=== PATIENT | female | born 1975 | race Caucasian/White ===

== ENCOUNTER 2020-01-03 23:58 | Observation (INO) ==
[2020-01-04] MEDS ORDERED: 0.9 % Sodium Chloride 1,000 ML IVC ONE (00:38)
[2020-01-04 01:12] LABS: Basophils % 0.5 %; Eosinophils # 0.1 K/mcL (0.0-0.6); Eosinophils % 1.4 %; Hematocrit 48.1 % (35.3-44.9); Immature Granulocytes % 0.7 % (0-4); Lymphocytes # 0.9 K/mcL (0.6-4.6); Lymphocytes % 19.6 %; Mean Corpuscular HGB Conc 31.2 g/dL (31.6-35.5); Mean Corpuscular Hemoglobin 27.1 pg (28.0-33.3); Mean Corpuscular Volume 86.8 fL (83.0-100.0); Mean Platelet Volume 10.3 fL (9.4-12.4); Monocytes # 0.4 K/mcL (0.0-1.3); Monocytes % 9.5 %; Platelet Count 149 K/mcL (140-400); Red Blood Count 5.54 M/mcL (3.82-4.97); Red Cell Distribution Width 13.9 % (11.5-14.5); Segmented Neutrophils % 68.3 %; White Blood Count 4.3 K/mcL (4.3-11.1)
[2020-01-04 01:13] LABS: INR 1.2; Prothrombin Time 13.1 Seconds (9.4-12.1)
[2020-01-04 01:20] LABS: Alanine Aminotransferase 91 Units/L (7-52); Albumin/Globulin Ratio 1.3 (1.1-2.2); Alkaline Phosphatase 136 Units/L (34-104); Aspartate Amino Transferase 84 Units/L (13-39); BUN/Creatinine Ratio 19 (6-26); Bilirubin,Direct 0.1 mg/dL (0.0-0.2); Bilirubin,Indirect 0.2 mg/dL (0.0-1.0); Bilirubin,Total 0.3 mg/dL (0.3-1.0); Blood Urea Nitrogen 13 mg/dL (6-20); Calcium 9.2 mg/dL (8.6-10.3); Carbon Dioxide 27 mEq/L (23-29); Chloride 102 mEq/L (98-107); Globulin 3.2 g/dL (2.4-3.5); Glucose 136 mg/dL (70-105); Osmolality,Calculated 284 (280-300); Phosphorous 3.2 mg/dL (2.7-4.5); Potassium 4.4 mEq/L (3.5-5.1); Sodium 136 mEq/L (136-145); Total Protein 7.2 g/dL (6.4-8.9); Troponin I < 0.03 ng/mL (< 0.04); eGFR For African Americans > 60 (> 60); eGFR For Non-African Americans > 60 (> 60)
[2020-01-04] MEDS ORDERED: Ketorolac 15 MG/ML VIAL IVP ONE (01:41)
[2020-01-04 01:52] LABS: Bilirubin,Urine Negative (Negative); Blood,Urine Negative (Negative); Clarity,Urine Clear (Clear); Color,Urine Light-Yellow (Yellow); Glucose,Urine (UA) Normal (Normal); Ketones,Urine Negative (Negative); Leukocyte Esterase,Urine Small (Negative); Mucus,Urine Few per lpf (None-Few); Nitrite,Urine Negative (Negative); PH,Urine 6.5 pH Units (5.0-8.0); Protein,Urine Negative (Neg-Trace); Specific Gravity,Urine 1.022 (1.010-1.025); Squamous Epithelial Cell,Urine Few per hpf (None-Few); Urobilinogen,Urine Normal (Normal)
[2020-01-04] MEDS ORDERED: *HR* FentaNYL (PF) 100 MCG/2 ML VIAL IVP ONE (03:21)
[2020-01-04] MEDS ORDERED: *HR* Promethazine 25 MG/ML VIAL IVP PRN (03:51)
[2020-01-04] MEDS ORDERED: Ondansetron 4 MG/2 ML VIAL IVP PRN (03:51)
[2020-01-04] MEDS ORDERED: Ketorolac 15 MG/ML VIAL IVP PRN ×2 (03:51→15:09)
[2020-01-04] MEDS ORDERED: Naloxone 0.4 MG/ML INJ IVP PRN (03:51)
[2020-01-04] MEDS ORDERED: Acetaminophen 325 MG TABLET PO PRN (03:51)
[2020-01-04] MEDS ORDERED: *HR* OxyCODONE/APAP 5/325 TABLET PO PRN (03:54)
[2020-01-04] MEDS ORDERED: ALPRAZolam 0.25 MG TABLET PO PRN (03:54)
[2020-01-04] MEDS ORDERED: Levothyroxine 25 MCG TABLET PO SCH (06:30)
[2020-01-04] MEDS: calcium polycarbophiL 625 MG TABLET PO SCH ×3 (08:36→21:05)
[2020-01-04] MEDS: Ringers Solution, Lactated 1,000 ML IVC SCH ×2 (08:36→20:25)
[2020-01-04] MEDS: *HR* Enoxaparin 40 MG/0.4 ML SYRINGE SQ SCH (08:36)
[2020-01-04] MEDS ORDERED: estradioL 1 MG TABLET PO SCH (09:00)
[2020-01-04] MEDS: Insulin LISPRO 300 UNITS/3 ML VIAL SQ SCH (16:45)
[2020-01-04] MEDS: Magic Mouthwash 10 ML UD Cup PO PRN (17:28)
[2020-01-05] MEDS: Loratadine 10 MG TABLET PO SCH ×2 (00:42→20:54)
[2020-01-05] MEDS: *HR* Enoxaparin 40 MG/0.4 ML SYRINGE SQ SCH (06:28)
[2020-01-05 08:07] LABS: Hematocrit 44.1 % (35.3-44.9); Hemoglobin 14.4 g/dL (11.5-15.4); Mean Corpuscular HGB Conc 32.7 g/dL (31.6-35.5); Mean Corpuscular Hemoglobin 28.5 pg (28.0-33.3); Mean Corpuscular Volume 87.2 fL (83.0-100.0); Mean Platelet Volume 9.9 fL (9.4-12.4); Platelet Count 119 K/mcL (140-400); Red Blood Count 5.06 M/mcL (3.82-4.97); Red Cell Distribution Width 13.7 % (11.5-14.5)
[2020-01-05 08:27] LABS: BUN/Creatinine Ratio 22 (6-26); Blood Urea Nitrogen 13 mg/dL (6-20); C-Reactive Protein 31 mg/L (Less than 10); Calcium 8.6 mg/dL (8.6-10.3); Carbon Dioxide 28 mEq/L (23-29); Chloride 100 mEq/L (98-107); Glucose 123 mg/dL (70-105); Lactate Dehydrogenase 129 Units/L (140-271); Osmolality,Calculated 285 (280-300); Phosphorous 3.9 mg/dL (2.7-4.5); Sodium 137 mEq/L (136-145); eGFR For African Americans > 60 (> 60); eGFR For Non-African Americans > 60 (> 60)
[2020-01-05] MEDS: Insulin LISPRO 300 UNITS/3 ML VIAL SQ SCH ×3 (08:35→17:22)
[2020-01-05] MEDS: calcium polycarbophiL 625 MG TABLET PO SCH ×3 (08:37→21:34)
[2020-01-05] MEDS: Magic Mouthwash 10 ML UD Cup PO PRN ×4 (08:39→20:54)
[2020-01-05 08:45] LABS: Ferritin 650 ng/mL (10-120)
[2020-01-05] MEDS ORDERED: Loratadine 10 MG TABLET PO SCH (09:00)
[2020-01-05] MEDS ORDERED: LEVOTHYROXINE SODIUM 200 MCG PO SCH (09:00)
[2020-01-05] MEDS: Dexamethasone 4 MG/ML VIAL IVP SCH (17:38)
[2020-01-05] MEDS ORDERED: Docusate Oral Soln 100 MG/10 ML UDC PO PRN (23:11)
[2020-01-06] MEDS: *HR* Enoxaparin 40 MG/0.4 ML SYRINGE SQ SCH (05:10)
[2020-01-06 05:18] LABS: Hematocrit 46.6 % (35.3-44.9); Lymphocytes # 0.5 K/mcL (0.6-4.6); Lymphocytes % 16.2 %; Mean Corpuscular HGB Conc 32.2 g/dL (31.6-35.5); Mean Corpuscular Hemoglobin 27.2 pg (28.0-33.3); Mean Corpuscular Volume 84.6 fL (83.0-100.0); Mean Platelet Volume 10.2 fL (9.4-12.4); Monocytes # 0.1 K/mcL (0.0-1.3); Monocytes % 4.8 %; Neutrophils # 2.3 K/mcL (1.6-8.9); Platelet Count 147 K/mcL (140-400); Red Blood Count 5.51 M/mcL (3.82-4.97); Red Cell Distribution Width 13.3 % (11.5-14.5); White Blood Count 2.9 K/mcL (4.3-11.1)
[2020-01-06 05:37] LABS: BUN/Creatinine Ratio 21 (6-26); Blood Urea Nitrogen 11 mg/dL (6-20); Calcium 9.5 mg/dL (8.6-10.3); Carbon Dioxide 27 mEq/L (23-29); Chloride 100 mEq/L (98-107); Glucose 190 mg/dL (70-105); Osmolality,Calculated 284 (280-300); Potassium 4.1 mEq/L (3.5-5.1); Sodium 135 mEq/L (136-145); eGFR For African Americans > 60 (> 60); eGFR For Non-African Americans > 60 (> 60)
[2020-01-06] MEDS: Insulin LISPRO 300 UNITS/3 ML VIAL SQ SCH ×2 (08:13→11:59)
[2020-01-06] MEDS: calcium polycarbophiL 625 MG TABLET PO SCH (08:15)
[2020-01-06] MEDS: Magic Mouthwash 10 ML UD Cup PO PRN ×2 (08:17→12:01)
[2020-01-06] MEDS: Dexamethasone 4 MG/ML VIAL IVP SCH (08:19)
[2020-01-06 08:23] VITALS: BP 155/62
== END 2020-01-06 13:41 | disposition home or self-care (01) ==
LOC: EMEROOARM 23:58 → 2NENU 23:58 → SUATTDRO 01-04 03:43 → 2NENU 01-04 04:42
PROVIDERS: ADMIT Internal Medicine; ATTEND Family Medicine

== ENCOUNTER 2020-01-09 16:58 | Observation (INO) ==
[2020-01-09] MEDS ORDERED: 0.9 % Sodium Chloride 1,000 ML IVC ONE (17:30)
[2020-01-09] MEDS ORDERED: Ipratropium/Albuterol Neb 3 ML IH ONE (17:30)
[2020-01-09] MEDS ORDERED: Ketorolac 30 MG/ML VIAL IVP ONE (17:31)
[2020-01-09 18:18] LABS: Basophils % 0.3 %; Hematocrit 47.7 % (35.3-44.9); Hemoglobin 15.2 g/dL (11.5-15.4); Immature Granulocytes % 0.7 % (0-4); Lymphocytes # 0.7 K/mcL (0.6-4.6); Lymphocytes % 23.7 %; Mean Corpuscular HGB Conc 31.9 g/dL (31.6-35.5); Mean Corpuscular Volume 84.9 fL (83.0-100.0); Monocytes # 0.2 K/mcL (0.0-1.3); Monocytes % 7.9 %; Platelet Count 108 K/mcL (140-400); Red Blood Count 5.62 M/mcL (3.82-4.97); Red Cell Distribution Width 13.7 % (11.5-14.5); Segmented Neutrophils % 67.4 %; White Blood Count 2.9 K/mcL (4.3-11.1)
[2020-01-09] MEDS ORDERED: Vancomycin 1,750 MG/517.5 ML IV.SOLN IVPB ONE (18:30)
[2020-01-09] MEDS ORDERED: Cefepime HCl 2,000 MG in Water for inj. (sterile) 20 ML IVP ONE (18:30)
[2020-01-09 18:38] LABS: BUN/Creatinine Ratio 19 (6-26); Blood Urea Nitrogen 14 mg/dL (6-20); Calcium 8.7 mg/dL (8.6-10.3); Carbon Dioxide 27 mEq/L (23-29); Chloride 101 mEq/L (98-107); Glucose 241 mg/dL (70-105); Osmolality,Calculated 288 (280-300); Potassium 4.5 mEq/L (3.5-5.1); Sodium 135 mEq/L (136-145); eGFR For African Americans > 60 (> 60); eGFR For Non-African Americans > 60 (> 60)
[2020-01-09 18:39] LABS: Troponin I < 0.03 ng/mL (< 0.04)
[2020-01-09 18:46] LABS: Large Platelets Present (Not Present); Platelet Estimate Decreased (Normal); Reactive Lymphocytes Present (Not Present)
[2020-01-09 19:38] LABS: Adenovirus Not Detected (Not Detect); Coronavirus 229E Not Detected (Not Detect); Coronavirus HKU1 Not Detected (Not Detect); Coronavirus NL63 Not Detected (Not Detect); Coronavirus OC43 Not Detected (Not Detect)
[2020-01-09 19:42] LABS: Bordetella Pertussis Not Detected (Not Detect); Chlamydophila pneumoniae Not Detected (Not Detect); Human Metapneumovirus Not Detected (Not Detect); Human Rhinovirus/Enterovirus DETECTED (Not Detect); Influenza A Subtype 2009 H1 Not Detected (Not Detect); Influenza B Not Detected (Not Detect); Mycoplasma pneumoniae Not Detected (Not Detect); Parainfluenza Virus 1 Not Detected (Not Detect); Parainfluenza Virus 2 Not Detected (Not Detect); Parainfluenza Virus 3 Not Detected (Not Detect); Parainfluenza Virus 4 Not Detected (Not Detect); Respiratory Syncytial Virus Not Detected (Not Detect); SARS-CoV-2 DETECTED (Not Detect)
[2020-01-09] MEDS ORDERED: Naloxone 0.4 MG/ML INJ IVP PRN (20:16)
[2020-01-09] MEDS ORDERED: Dexamethasone 4 MG/ML VIAL IVP ONE (20:21)
[2020-01-09] MEDS: Azithromycin 500 MG in 0.9 % Sodium Chloride 250 ML IVPB SCH (22:51)
[2020-01-09] MEDS: *HR* Heparin 5,000 UNIT/ML VIAL SQ SCH (23:00)
[2020-01-09] MEDS ORDERED: D5% in Water 1,000 ML IVC PRN (23:16)
[2020-01-09] MEDS ORDERED: Dextrose Gel 15 GM/37.5 ML TUBE PO PRN ×2 (23:16)
[2020-01-09] MEDS ORDERED: *HR* Dextrose 50 % in Water (Vial) 50 ML VIAL IVP PRN (23:16)
[2020-01-09] MEDS: Insulin LISPRO 300 UNITS/3 ML VIAL SQ SCH (23:48)
[2020-01-09] MEDS ORDERED: FluocinoNIDE 0.05% CRM 15 GM TUBE TP PRN (23:49)
[2020-01-10] MEDS: rOPINIRole 1 MG TABLET PO SCH ×2 (00:19→22:05)
[2020-01-10 00:40] LABS: C-Reactive Protein 87 mg/L (Less than 10); Creatine Kinase 24 Units/L (30-223); Lactate Dehydrogenase 217 Units/L (140-271)
[2020-01-10 02:38] LABS: Alanine Aminotransferase 47 Units/L (7-52); Albumin 3.1 g/dL (3.5-5.7); Albumin/Globulin Ratio 1.1 (1.1-2.2); Alkaline Phosphatase 111 Units/L (34-104); Aspartate Amino Transferase 40 Units/L (13-39); BUN/Creatinine Ratio 25 (6-26); Bilirubin,Total 0.4 mg/dL (0.3-1.0); Blood Urea Nitrogen 15 mg/dL (6-20); Carbon Dioxide 21 mEq/L (23-29); Chloride 109 mEq/L (98-107); Globulin 2.8 g/dL (2.4-3.5); Glucose 127 mg/dL (70-105); Osmolality,Calculated 288 (280-300); Potassium 4.3 mEq/L (3.5-5.1); Sodium 138 mEq/L (136-145); Total Protein 5.9 g/dL (6.4-8.9); eGFR For African Americans > 60 (> 60); eGFR For Non-African Americans > 60 (> 60)
[2020-01-10 02:49] LABS: Basophils % 0.3 %; Hematocrit 43.5 % (35.3-44.9); Immature Granulocytes % 0.6 % (0-4); Lymphocytes # 0.8 K/mcL (0.6-4.6); Lymphocytes % 25.5 %; Mean Corpuscular Hemoglobin 26.9 pg (28.0-33.3); Mean Corpuscular Volume 86.8 fL (83.0-100.0); Mean Platelet Volume 10.8 fL (9.4-12.4); Monocytes # 0.2 K/mcL (0.0-1.3); Monocytes % 6.7 %; Neutrophils # 2.2 K/mcL (1.6-8.9); Platelet Count 103 K/mcL (140-400); Red Blood Count 5.01 M/mcL (3.82-4.97); Red Cell Distribution Width 13.9 % (11.5-14.5); Segmented Neutrophils % 66.9 %; White Blood Count 3.3 K/mcL (4.3-11.1)
[2020-01-10 03:10] LABS: Hemoglobin 13.5 g/dL (11.5-15.4)
[2020-01-10] MEDS: *HR* Heparin 5,000 UNIT/ML VIAL SQ SCH ×3 (03:37→22:05)
[2020-01-10 03:49] LABS: Platelet Estimate Slight Decrease (Normal); Reactive Lymphocytes Present (Not Present)
[2020-01-10] MEDS: Levothyroxine 25 MCG TABLET PO SCH (05:00)
[2020-01-10] MEDS ORDERED: Ondansetron 4 MG/2 ML VIAL IVP PRN (05:02)
[2020-01-10] MEDS: Magic Mouthwash 10 ML UD Cup PO PRN ×3 (08:49→18:03)
[2020-01-10] MEDS: Insulin LISPRO 300 UNITS/3 ML VIAL SQ SCH ×3 (08:51→15:50)
[2020-01-10] MEDS: *HR* OxyCODONE Immed Rel 5 MG TABLET PO PRN ×2 (08:52→22:05)
[2020-01-10] MEDS ORDERED: Loratadine 10 MG TABLET PO SCH ×2 (09:00→21:00)
[2020-01-10 09:53] LABS: INR 1.2; Prothrombin Time 14.3 Seconds (9.4-12.1)
[2020-01-10 09:55] LABS: Activated Partial Thrombo Time 26.2 Seconds (26.0-36.0)
[2020-01-10] MEDS ORDERED: Acetaminophen 325 MG TABLET PO PRN (11:10)
[2020-01-10] MEDS: Celecoxib 200 MG CAPSULE PO SCH (22:05)
[2020-01-10] MEDS: Azithromycin 500 MG in 0.9 % Sodium Chloride 250 ML IVPB SCH (22:06)
[2020-01-10] MEDS: Fluticasone Propionate Nasal 50 MCG/SPRAY BOTTLE NS SCH (23:59)
[2020-01-11] MEDS: Levothyroxine 25 MCG TABLET PO SCH (06:15)
[2020-01-11] MEDS: *HR* Heparin 5,000 UNIT/ML VIAL SQ SCH (06:15)
[2020-01-11] MEDS: Insulin LISPRO 300 UNITS/3 ML VIAL SQ SCH (08:53)
[2020-01-11 09:02] VITALS: BP 130/83
[2020-01-11] MEDS: Celecoxib 200 MG CAPSULE PO SCH (09:07)
[2020-01-11] MEDS: Magic Mouthwash 10 ML UD Cup PO PRN (09:07)
[2020-01-11 09:48] LABS: Basophils % 0.2 %; Hemoglobin 14.8 g/dL (11.5-15.4); Immature Granulocytes % 0.4 % (0-4); Lymphocytes # 1.1 K/mcL (0.6-4.6); Lymphocytes % 22.8 %; Mean Corpuscular HGB Conc 32.9 g/dL (31.6-35.5); Mean Corpuscular Hemoglobin 27.6 pg (28.0-33.3); Mean Corpuscular Volume 83.8 fL (83.0-100.0); Mean Platelet Volume 10.8 fL (9.4-12.4); Monocytes # 0.4 K/mcL (0.0-1.3); Neutrophils # 3.2 K/mcL (1.6-8.9); Platelet Count 167 K/mcL (140-400); Red Blood Count 5.37 M/mcL (3.82-4.97); Red Cell Distribution Width 13.1 % (11.5-14.5); Segmented Neutrophils % 68.6 %; White Blood Count 4.6 K/mcL (4.3-11.1)
[2020-01-11 10:21] LABS: BUN/Creatinine Ratio 29 (6-26); Blood Urea Nitrogen 15 mg/dL (6-20); C-Reactive Protein 25 mg/L (Less than 10); Calcium 8.7 mg/dL (8.6-10.3); Carbon Dioxide 24 mEq/L (23-29); Chloride 106 mEq/L (98-107); Ferritin 479 ng/mL (10-120); Glucose 117 mg/dL (70-105); Lactate Dehydrogenase 208 Units/L (140-271); Osmolality,Calculated 288 (280-300); Potassium 3.9 mEq/L (3.5-5.1); Sodium 138 mEq/L (136-145); Thyroid Stimulating Hormone 1.325 mcIU/mL (0.340-5.600); eGFR For African Americans > 60 (> 60); eGFR For Non-African Americans > 60 (> 60)
[2020-01-11] MEDS: Fluticasone Propionate Nasal 50 MCG/SPRAY BOTTLE NS SCH (11:47)
== END 2020-01-11 12:52 | disposition home or self-care (01) ==
LOC: EMEROOARM 16:58 → 2NENU 16:58 → SUATTDRO 20:32 → 2NENU 20:36
PROVIDERS: ADMIT Internal Medicine; ATTEND Family Medicine